=== PATIENT | female | born 1935 | race Two or more races ===

== ENCOUNTER 2017-07-06 08:15 | Outpatient (CLI) | payer OTHER ==
[~2017-07-06] VITALS: Ht 152.4 cm; Wt 51.3 kg
[~2017-07-06 08:15] MED LIST: FLONASE16 GM NASAL; OMEPRAZOLE40 MG PO; SYNTHROID50 MCG; [UNRECOGNIZED DRUG - OTHER]
== END 2017-07-06 08:30 | disposition home or self-care (01) ==
LOC: OFIC 805 08:15
DX: R49.8 Other voice and resonance disorders (principal); J37.0 Chronic laryngitis; J31.0 Chronic rhinitis; T17.228A Food in pharynx causing other injury, initial encounter; X58.XXXA Exposure to other specified factors, initial encounter; Y93.89 Activity, other specified; Y92.89 Other specified places as the place of occurrence of the external cause; Y99.8 Other external cause status

== ENCOUNTER 2018-04-10 12:15 | Outpatient (CLI) | payer OTHER | END 2018-04-10 17:00 | disposition home or self-care (01) | LOC: RAD 12:15 | DX: M54.2 Cervicalgia (principal) ==

== ENCOUNTER 2018-08-07 11:23 | Outpatient (CLI) | payer OTHER | END 2018-08-07 11:26 | disposition home or self-care (01) | LOC: SONOGRAMA 11:23 | DX: R10.84 Generalized abdominal pain (principal) ==

== ENCOUNTER 2018-08-25 09:31 | Emergency (ER) | payer OTHER ==
[~2018-08-25] VITALS: Ht 152.4 cm; Wt 51.3 kg
== END 2018-08-25 12:47 ==
LOC: ER 09:31
DX: I95.9 Hypotension, unspecified (principal)

== ENCOUNTER 2019-01-29 09:50 | Outpatient (CLI) | payer OTHER | END 2019-01-29 17:00 | disposition home or self-care (01) | LOC: MRI 09:50 | DX: D32.0 Benign neoplasm of cerebral meninges (principal) | CPT/HCPCS: 70553; A9575 ==

== ENCOUNTER 2019-02-15 10:24 | Outpatient (CLI) | payer OTHER | END 2019-02-15 11:00 | disposition home or self-care (01) | LOC: NUCLEAR 10:24 | DX: I73.9 Peripheral vascular disease, unspecified (principal) ==

== ENCOUNTER 2019-02-19 12:27 | Outpatient (CLI) | payer OTHER | END 2019-02-19 13:00 | disposition home or self-care (01) | LOC: NUCLEAR 12:27 | DX: I87.2 Venous insufficiency (chronic) (peripheral) (principal) ==

== ENCOUNTER 2019-09-20 21:13 | Emergency (ER) | payer OTHER ==
[~2019-09-20] VITALS: Ht 152.4 cm; Wt 45.4 kg
[2019-09-20] MEDS ORDERED: RAMIPRIL5 MG PO (21:39)
[2019-09-20] MEDS ORDERED: TOPROL XL50 M1 PO (21:39)
[2019-09-20] MEDS ORDERED: PEPCID AC20 MG PO (21:39)
[2019-09-20] MEDS ORDERED: LEVO-T75 MCG PO (21:39)
[2019-09-20] MEDS ORDERED: VITAMIN D31250 MCG PO (21:40)
[2019-09-20] MEDS ORDERED: SYSTANE 0.3-0.415 ML OP (21:40)
[2019-09-20] MEDS ORDERED: LATANOPROST2.5 ML OP (21:40)
== END 2019-09-21 04:49 | disposition designated cancer center or children's hospital (05) ==
LOC: ER 21:13 → CPU-OBS 21:15 → ER 21:15
DX: I61.8 Other nontraumatic intracerebral hemorrhage (principal)